=== PATIENT | male | born 1995 | race Caucasian/White ===

== ENCOUNTER 2019-07-24 16:44 | Emergency (ER) | payer OTHER, SELFPAY ==
[2019-07-24 17:02] VITALS: BP 166/96; PULSE 85; RESP 16; TEMP 37.1; O2SAT 98
[2019-07-24 18:36] VITALS: BP 160/101; PULSE 87; RESP 18; O2SAT 100
[2019-07-24] MEDS: OXYMETAZOLINE NASAL SPRAY 30 ML 2 SPRAYS NASAL (19:24)
[2019-07-24 19:33] LABS: Add Manual Diff / Slide Review NO; Basophils Absolute Auto 100 /uL (0-100); Basophils Percent Auto 0.8 % (0-2); Eosinophils Absolute Auto 200 /uL (0-450); Eosinophils Percent Auto 2.6 % (2-4); Hematocrit 44.4 % (41-53); Hemoglobin 15.1 g/dL (13.5-17.5); Lymphocytes Absolute Auto 1700 /uL (1100-4500); Mean Corpuscular Hemoglobin 29.2 PG (26-34); Mean Corpuscular Volume 85.8 fL (80-100); Monocytes Absolute Auto 500 /uL (0-900); Monocytes Percent Auto 6.5 % (3-14); Neutrophils Absolute Auto 4700 /uL (1500-7000); Neutrophils Percent Auto 66.1 % (50-75); Platelet Count 232 X10^3/uL (150-400); Red Blood Cell Count 5.17 X10^6/uL (4.5-5.9); Red Cell Distribution Width 13.2 % (11.6-14.8); White Blood Cell Count 7.1 X10^3/uL (4.5-11.0)
[2019-07-24 19:45] LABS: PTT Partial Thromboplastin Tim 32 SECONDS (26.4-36.2)
[2019-07-24 20:28] VITALS: BP 155/86; PULSE 87; RESP 16; O2SAT 99
--- NOTE | 2019-07-24 20:30 | ED_ITS ---
HPI - Epistaxis <Grant ElizondoEMELY lockettP - Last Filed: 07/25/19 00:30> General Chief complaint: Nasal Problem Stated complaint: NOSE BLEED WONT STOP BLEEDING Time Seen by Provider: 07/24/19 18:44 Source: patient Mode of arrival: Ambulatory Limitations: no limitations History of Present Illness HPI Narrative: This is a pleasant 24-year-old gentleman, prior smoker, who presents to ED with several episodes of nosebleed from left side today. Patient denies picking or irritating mucous membranes of his nose. Patient attempted to stop nose bleed by inserting paper towels after applying direct pressure for about 5 minutes. Patient denies chest pain, breathing difficulty, nausea or vomiting. When patient was evaluated in the room, he already had nasal climbs with cotton nasal packing. Patient denies history of blood clotting problems in the past. However, he has been taking Motrin 800-1000 mg at a time about 2 times a day for musculoskeletal discomfort after this was suggested by physical therapist. Patient denies abdominal discomfort at this time. Related Data Home Medications Medication Instructions Recorded Confirmed epinephrine [EpiPen 2-Hans] 0.3 mg IM PRN PRN 07/24/19 07/24/19 Allergies Allergy/AdvReac Type Severity Reaction Status Date / Time bee pollen [BEE POLLEN] Allergy Unknown Verified 07/24/19 17:04 Sulfa (Sulfonamide Allergy Unknown Verified 07/24/19 17:04 Antibiotics) [SULFA (SULFONAMIDE ANTIBIOTICS)] Review of Systems <Grant ElizondoEMELY lockettP - Last Filed: 07/25/19 00:30> Review of Systems Narrative: General: Denies fever, chills, fatigue, malaise, sweats. HEENT: Left side Nose bleed, Denies sinus pain, ear pain, sore throat, difficulty swallowing, dizziness. Respiratory: Denies dyspnea, cough, wheezing, hemoptysis, sputum. Cardiovascular: Denies chest pain, palpitations, orthopnea, edema. Gastrointestinal: Denies nausea, vomiting, abdominal pain, diarrhea, constipation, melena. : Denies dysuria, frequency, incontinence, hematuria, urinary retention. Musculoskeletal: Denies weakness, joint pain or bony pain. Skin: Denies rash, skin lesions, or other. Neurologic: Denies weakness, headache, numbness, change in speech, confusion, seizures, incoordination. Psychiatric: No concerning psychosocial issues. 12-point review of systems is negative except for those stated above. PFSH <LLUVIA Lindo - Last Filed: 07/25/19 00:30> Surgical History (Updated 07/24/19 @ 20:31 by LLUVIA Lindo) H/O: knee surgery (Acute) History of repair of pyloric stenosis (Acute) Social History Smoking Status: Former smoker Social History Smoking Status: Former smoker Exam <LLUVIA Lindo - Last Filed: 07/25/19 00:30> Narrative Exam Narrative: GEN: Alert, oriented x 3, well appearing and nourished, and in no acute distress. Head: Normal cephalic, atraumatic. No scalp or temporal tenderness, palpable mass or rash. EYES: Pupils are equal, round, and reactive to light and accommodation. Extraocular muscles are intact bilaterally. There is no subconjunctival hemorrhage, exudate and sclera non-icteric. ENT: Hearing grossly intact. After nasal clamp and cotton packing removed, noted no nasal active bleeding, purulent discharge or deviation. Facial sinuses nontender to palpate. Mucous membrane moist, no mucosal lesion. Throat without erythema, tonsillar hypertrophy or exudate. Uvula in midline, airway patent. Neck: Trachea in midline. No JVD, non-tender without lymphadenopathy. No mas ses or thyroid megaly. Supple, non-tender and no meningeal signs. CARDIAC: Normal regular rate and rhythm without murmurs, gallops, or rubs. No chest wall tenderness. No peripheral edema, cyanosis or pallor. Capillary refill is less than 2 seconds. RESPIRATORY: Lungs are cleat to auscultate bilaterally. No cough, wheezes, rales, or rhonchi. No stridor, respiratory distress, increase work of breathing, or accessary muscle used. ABD: Abdomen soft, nontender and non-distended. No guarding or rebound tenderness to palpate. Bowel sounds are normal in all 4 quadrants. There is no palpable masses or organomegaly. EXT: Full painless ROM of all extremities with no loss of sensation, strength, effusion or edema. SKIN: Warm, dry, normal color for patient. No erythema, lesions or rash over visible areas. BACK: Nontender without deformity or crepitance. No flank tenderness. NEUROLOGICAL: Alert and oriented to place, time and person. Sensation and motor function intact bilaterally. No facial droops, dysphasia. PSYCHIATRIC: Good judgement and reason, without hallucinations, abnormal affect or abnormal behaviors during the examination. Initial Vital Signs Initial Vital Signs: Vital Signs Temperature 98.8 F 07/24/19 17:02 Pulse Rate 85 07/24/19 17:02 Respiratory Rate 16 07/24/19 17:02 Blood Pressure 166/96 H 07/24/19 17:02 Pulse Oximetry 98 07/24/19 17:02 <Natanael Shah DO - Last Filed: 07/25/19 00:31> Initial Vital Signs Initial Vital Signs: Vital Signs Temperature 98.8 F 07/24/19 17:02 Pulse Rate 85 07/24/19 17:02 Respiratory Rate 16 07/24/19 17:02 Blood Pressure 166/96 H 07/24/19 17:02 Pulse Oximetry 98 07/24/19 17:02 Procedures <LLUVIA Lindo - Last Filed: 07/25/19 00:30> Epistaxis Control Time Out Performed: Yes Nostril: left Nose Prepped With: oxymetazoline (Congestion and swelling improved, continue with no active bleeding after the medication use) Direct Inspection: yes and unable to visualize (Active bleeding) Patient Tolerated Procedure: well Course <LLUVIA Lindo - Last Filed: 07/25/19 00:30> Orders Ordered: ED Orders 07/24/19 19:27 Complete Blood Count AUTO DIFF Stat Partial Thromboplastin Time Stat Prothrombin Time INR Stat Discontinued Medications Oxymetazoline HCl (Afrin) 2 sprays NASAL NOW ONE Stop: 07/24/19 19:02 Last Admin: 07/24/19 19:24 Dose: 2 sprays Documented by: STEFANY Vital Signs Vital signs: Vital Signs - 8 hr 07/24/19 17:02 07/24/19 18:36 07/24/19 20:28 Temperature 98.8 F Pulse Rate 85 87 87 Respiratory Rate 16 18 16 Blood Pressure 166/96 H Blood Pressure [Left Arm] 160/101 H 155/86 H Pulse Oximetry 98 100 99 <Natanael Shah DO - Last Filed: 07/25/19 00:31> Orders Ordered: ED Orders 07/24/19 19:27 Complete Blood Count AUTO DIFF Stat Partial Thromboplastin Time Stat Prothrombin Time INR Stat Discontinued Medications Oxymetazoline HCl (Afrin) 2 sprays NASAL NOW ONE Stop: 07/24/19 19:02 Last Admin: 07/24/19 19:24 Dose: 2 sprays Documented by: STEFANY Vital Signs Vital signs: Vital Signs - 8 hr 07/24/19 17:02 07/24/19 18:36 07/24/19 20:28 Temperature 98.8 F Pulse Rate 85 87 87 Respiratory Rate 16 18 16 Blood Pressure 166/96 H Blood Pressure [Left Arm] 160/101 H 155/86 H Pulse Oximetry 98 100 99 MDM - Epistaxis <LLUVIA Lindo - Last Filed: 07/25/19 00:30> Differential Diagnosis Differential diagnosis: Likely anterior epistaxis and posterior epistaxis Medical Records Attestation: I reviewed the patient's medical records. Lab Data Result diagrams: 07/24/19 19:27 Labs: Lab Results 07/24/19 07/24/19 Range/Units 19:27 19:27 WBC 7.1 (4.5-11.0) X10^3/uL RBC 5.17 (4.5-5.9) X10^6/uL Hgb 15.1 (13.5-17.5) g/dL Hct 44.4 (41-53) % MCV 85.8 (80-100) fL MCH 29.2 (26-34) PG MCHC 34.0 (30-36) % RDW 13.2 (11.6-14.8) % Plt Count 232 (150-400) X10^3/uL Neut % (Auto) 66.1 (50-75) % Lymph % (Auto) 24.0 L (25-40) % Wallace % (Auto) 6.5 (3-14) % Eos % (Auto) 2.6 (2-4) % Baso % (Auto) 0.8 (0-2) % Neut # (Auto) 4700 (3943-9491) /uL Lymph # (Auto) 1700 (9947-2106) /uL Wallace # (Auto) 500 (0-900) /uL Eos # (Auto) 200 (0-450) /uL Baso # (Auto) 100 (0-100) /uL PT 11.0 (10.1-12.7) SECONDS INR 1.0 (0.9-1.3) APTT 32 (26.4-36.2) SECONDS MDM Narrative Medical decision making narrative: This is 24-year-old gentleman presents to ED with several episodes of epistaxis since 09 19 today. Patient denies chest pain, short of breath, dizziness. Patient does not have history of blood clotting problems. During initial exam, patient's epistaxis had controlled by nasal clamp and nasal cotton tampon that was placed on at triage. The source of bleeding was unable to located by direct visualization. Afrin was sprayed and packed with cotton ball unaffected nose. Nasal congestion had improved but still there was no active bleeding or the source was visualized. Patient's blood test for platelet and coags were unremarkable. I discussed with the patient on how to stop nose bleed if this recurs at home and verbalized understanding. Return precautions were discussed with the patient and advised to follow up with his primary care physician next week. Patient agrees with treatment plan and no further questions were expressed at this time. <Natanael Shah, DO - Last Filed: 07/25/19 00:31> Lab Data Labs: Lab Results 07/24/19 07/24/19 Range/Units 19:27 19:27 WBC 7.1 (4.5-11.0) X10^3/uL RBC 5.17 (4.5-5.9) X10^6/uL Hgb 15.1 (13.5-17.5) g/dL Hct 44.4 (41-53) % MCV 85.8 (80-100) fL MCH 29.2 (26-34) PG MCHC 34.0 (30-36) % RDW 13.2 (11.6-14.8) % Plt Count 232 (150-400) X10^3/uL Neut % (Auto) 66.1 (50-75) % Lymph % (Auto) 24.0 L (25-40) % Wallace % (Auto) 6.5 (3-14) % Eos % (Auto) 2.6 (2-4) % Baso % (Auto) 0.8 (0-2) % Neut # (Auto) 4700 (7562-9821) /uL Lymph # (Auto) 1700 (2782-2952) /uL Wallace # (Auto) 500 (0-900) /uL Eos # (Auto) 200 (0-450) /uL Baso # (Auto) 100 (0-100) /uL PT 11.0 (10.1-12.7) SECONDS INR 1.0 (0.9-1.3) APTT 32 (26.4-36.2) SECONDS Discharge Plan Departure Patient Disposition: Home Clinical Impression: Epistaxis Discharge Date/Time: 07/24/19 20:33 Instructions: DI for Nosebleed Activity Restrictions/Additional Instructions: You have been diagnosed with [epistaxis. Blood test today for checking clotting factors were unremarkable. There was no significant blood loss either. The nose bleed has stopped while in ED. If bleeding restarts, removed the clots by blowing out, use Afrin 2 sprays unaffected nose, hold the nose by pinching his right below the nasal bone for 15-20 minutes and if this helps with bleeding. If the inside nose feels dry and scabbed, you can use Vaseline or Neosporin]. What to do: *Take your medications as directed. *Follow up with your primary care provider in 2-3 days, call for an appointment. Let them know you were seen in the ED and that we asked you to be seen in follow up. *Return to ED if you have any new, worsening, or concerning symptoms, such as [severe nose bleed, chest pain, breathing difficulty, unable to tolerate fluids, or any acute concerns]. Prescriptions: No Action epinephrine [EpiPen 2-Hans] 0.3 MG/0.3 ML auto-injector 0.3 mg IM PRN PRN (Reason: Allergic Reaction) RF: 0 Referrals: Samantha Dale PA-C [Primary Care Provider] - <Natanael Shah DO - Last Filed: 07/25/19 00:31> Sign Out Provider Sign Out Attestation: I was available for consultation during this patient's emergency department encounter
== END 2019-07-24 20:33 | disposition home or self-care (01) ==
PROVIDERS: Emergency Provider Nurse Practitioner Family; Family Provider Physician Assistant Medical; PCP Physician Assistant Medical
DX: R04.0 Epistaxis (principal)
CPT/HCPCS: 30901; 36415; 85025; 85610; 85730; 99282; 99283

== ENCOUNTER → 2021-06-06 15:44 | Outpatient (CLI) | payer OTHER, SELFPAY | PROVIDERS: Family Provider Physician Assistant Medical; PCP Physician Assistant Medical; Referring Provider Obstetrics & Gynecology; Visit Provider Obstetrics & Gynecology | DX: Z13.9 Encounter for screening, unspecified (principal); Z83.2 Family history of diseases of the blood and blood-forming organs and certain disorders involving the immune mechanism | CPT/HCPCS: 36415; 86850; 86900; 86901 ==

== ENCOUNTER 2022-10-21 20:49 | Emergency (ER) | payer OTHER, SELFPAY ==
[2022-10-21 21:00] VITALS: BP 157/103; PULSE 103; RESP 18; TEMP 36.6; O2SAT 99; BMI 28.5
--- NOTE | 2022-10-21 23:38 | ED.ANIMALBIT ---
HPI - Animal Bite General Chief Complaint: Animal Bite Stated Complaint: family dog bite on his mouth Time Seen by Provider: 10/21/22 23:36 Source: patient Mode of arrival: Ambulatory Limitations: no limitations Related Data Home Medications Medication Instructions Recorded Confirmed epinephrine 0.3 mg/0.3 mL 0.3 mg IM PRN PRN Allergic Reaction 07/24/19 07/24/19 injection, auto-injector (EpiPen 2-Hans) Allergies Allergy/AdvReac Type Severity Reaction Status Date / Time bee pollen [BEE POLLEN] Allergy Unknown Verified 07/24/19 17:04 Sulfa (Sulfonamide Allergy Unknown Verified 07/24/19 17:04 Antibiotics) [SULFA (SULFONAMIDE ANTIBIOTICS)] Review of Systems Review of Systems ROS Unobtainable: All systems reviewed & are unremarkable except as noted in HPI and below Patient History Surgical History H/O: knee surgery History of repair of pyloric stenosis Social History Smoking Status: Former smoker Smoking Status: Former smoker tobacco type: smokeless tobacco alcohol intake frequency: a few times a week Substance Use Type: does not use Exam Initial Vital Signs Initial Vital Signs: Vital Signs Temperature 98 F 10/21/22 21:00 Pulse Rate 103 H 10/21/22 21:00 Respiratory Rate 18 10/21/22 21:00 Blood Pressure 157/103 H 10/21/22 21:00 Pulse Oximetry 99 10/21/22 21:00 Oxygen Delivery Method 10/21/22 21:00 Course Vital Signs Vital signs: Vital Signs - 8 hr 10/21/22 21:00 Temperature 98 F Pulse Rate 103 H Respiratory Rate 18 Blood Pressure 157/103 H Pulse Oximetry 99 Oxygen Delivery Method Room Air Discharge Plan Departure Prescriptions: No Action epinephrine [EpiPen 2-Hans] 0.3 MG/0.3 ML auto-injector 0.3 mg IM PRN PRN (Reason: Allergic Reaction) Referrals: Samantha Dale PA-C [Primary Care Provider] -
== END 2022-10-21 23:48 | disposition left against medical advice (07) ==
PROVIDERS: Emergency Provider Emergency Medicine; Family Provider Physician Assistant Medical; PCP Physician Assistant Medical
CPT/HCPCS: 99281